=== PATIENT | male | born 1995 | race Two or more races ===

== ENCOUNTER 2025-07-05 07:34 | Emergency (ER) | payer MEDICAID, SELFPAY ==
--- NOTE | ~2025-07-05 | XR_ITS ---
EXAMINATION: XR THORACIC SPINE 2 VIEWS HISTORY: pain, injury COMPARISON: There are no prior studies available for comparison. FINDINGS: AP and lateral views of the thoracic spine are submitted. Osseous mineralization is normal. The vertebral bodies maintain normal height and alignment without evidence of fracture or subluxation. There are minimal degenerative changes with anterior spurring. The visualized paraspinal soft tissues are unremarkable. XR/XR thoracic spine 2V IMPRESSION: Minimal degenerative changes. Otherwise unremarkable examination of the thoracic spine. Electronically signed by: Willam Bravo MD 07/05/2025 11:29 AM EDT
[2025-07-05 07:44] VITALS: BP 120/56; PULSE 74; RESP 16; TEMP 37; O2SAT 99; BMI 33.5
--- NOTE | 2025-07-05 09:35 | ED_ITS ---
HPI - General Adult General Chief complaint: Back Pain/Injury Stated complaint: Middle back pain, Abd Stiff, L arm numb Time Seen by Provider: 07/05/25 09:32 Source: patient Mode of arrival: ambulatory Limitations: no limitations History of Present Illness ED Provider: Carolina Delatorre PA-C HPI narrative: Patient is a 29 year old male with no significant medical history presenting with back pain since 6:30 this morning. 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 He says he almost fell over from the pain and then used the wall to go to his bed where he then lied down unable to move from severe pain. His pain now is at a 7/10 and not as severe as when it initially happened. He also felt numbness and tingling in his legs which has now resolved. He tried topical lidocaine and ibuprofen with little to no relief. He denies fever, chills, chest pain, palpitations, shortness of breath, n/v/d, abdominal pain, or dysuria. Onset (ago): hour(s) (5) Location: back Radiation: non-radiation Severity: moderate Severity scale (1-10): 7 Quality: sharp Pain Consistency: intermittent Relieving factors: rest Exacerbating factors: movement Associated symptoms: denies other symptoms Related Data Previous Rx's ?Medication ?Instructions ?Recorded cyclobenzaprine 5 mg tablet 5 mg PO TID PRN back pain 7 days 07/05/25 #21 tabs prednisone 20 mg tablet 20 mg PO DAILY 7 days #7 tab s 07/05/25 Allergies Allergy/AdvReac Type Severity Reaction Status Date / Time shellfish derived (shellfish) Allergy Hives Verified 07/05/25 07:49 Review of Systems Constitutional: Constitutional: Reports no additional constitutional complaints, Denies chills, Denies fever(s) and Denies night sweats Eyes: Eyes: Reports no additional eye complaints, Denies blurry vision, Denies change in vision, Denies diplopia, Denies eye discharge, Denies loss of vision and Denies eye pain ENT: Denies dizziness Cardiovascular: Cardiovascular: Reports no additional cardiovascular complaints, Denies chest pain, Denies lightheadedness, Denies Loss of Consciousness and Denies dyspnea Respiratory: Respiratory: Reports no additional respiratory complaints and Denies dyspnea Gastrointestinal: Gastrointestinal: Reports no additional gastrointestinal complaints, Denies abdominal pain, Denies melena, Denies hematochezia, Denies change in bowel habits and Denies change in stool character Genitourinary: Genitourinary: Reports no additional male genitourinary complaints, Denies hematuria, Denies oliguria, Denies difficulty urinating, Denies dysuria, Denies urinary frequency, Denies urinary hesitancy, Denies urinary incontinence and Denies urinary urgency Musculoskeletal: Musculoskeletal: Reports as per HPI and Reports back pain Neurologic: Denies dizziness and Denies loss of vision Psychiatric: Psychiatric: Reports no additional psychiatric complaints Endocrine: Endocrine: Reports no additional endocrine complaints Hematologic/Lymphatic: Hematologic/Lymphatic: Reports no additional hematologic/lymphatic complaints Allergic/Immunologic: Allergic/Immunologic: Reports no additional allergic/immunologic complaints PMFSH Past Medical History Attestation statement: The following information was validated with the patient. Source: old records reviewed and nursing notes reviewed Social History Social History Smoked in Last 30 Days: No Use of substances other than those prescribed or required for medical reasons: No Advance Directives: No Advance Directives Information Provided: No Physical Exam ED Vital Signs: Vital Signs - 24 hr 07/05/25 07:44 Temperature 98.6 F Pulse Rate 74 Respiratory Rate 16 Blood Pressure 120/56 L Pulse Oximetry 99 Oxygen Delivery Method Room Air BMI result Body Mass Index 33.5 Const General: cooperative, no acute distress, alert and awake Nutritional Appearance: well nourished Orientation/consciousness: patient oriented x3 HENMT Head: Yes normal to inspection and Yes atraumatic Ears: hearing grossly normal bilaterally and external ears normal General nose exam: Normal external nose present, no nasal discharge noted and no epistaxis Face and sinus: Yes normal facial exam, No abrasion and No laceration Mouth: Normal oral and palatal mucosa present, no drooling and no muffled voice Eyes General: appearance normal, both eyes and all related structures Periorbital: periorbital findings normal Eyelids: Yes eyelids normal Conjunctivae: conjunctivae normal Pupils: Equal, round and reactive pupils present EOM: EOMs intact bilaterally Neck Neck: Yes normal visual inspection and Yes full ROM Resp Effort & Inspection: normal respiratory effort and able to speak in complete sentences Auscultation: clear to auscultation bilaterally Cardio Rate: regular rate Rhythm: regular rhythm Neuro General: patient oriented x3, moves all extremities and CN's II-XI intact bilaterally Cranial nerves: Yes Equal, round and reactive pupils present Cognition (Neuro): normal cognition Extrem Other: Tenderness to palpation directly over the mid-thoracic spinous processes without step off, swelling or erythema. General: Yes normal to inspection, Yes full ROM and Yes capillary refill normal Psych Appearance: grossly normal Mental Status: mental status grossly normal Affect: normal affect Attitude: cooperative Thought process: Normal thought process present Thought content: Normal thought content present Insight: Good insight present (Psych) Medications Administered Discontinued Medications Generic Name Dose Route Start Last Admin Trade Name Stef PRN Reason Stop Dose Admin Cyclobenzaprine HCl 5 mg 07/05/25 10:28 07/05/25 11:29 Cyclobenzaprine Hcl 5 Mg Tablet PO 07/05/25 10:29 5 mg ONCE ONE Administration Ketorolac Tromethamine 15 mg 07/05/25 10:28 07/05/25 11:28 Ketorolac Tromethamine 15 Mg/Ml Vial IM 07/05/25 10:29 15 mg ONCE ONE Administration Methylprednisolone Sodium Succinate 60 mg 07/05/25 10:28 07/05/25 11:29 Methylprednisolone Sod Succ 125 Mg/2 Ml Vial IM 07/05/25 10:29 60 mg ONCE ONE Administration Medical Decision Making Medical Decision Making [facility] Narrative: Patient is a 29 year old assigned male at with no reported medical history presenting to the emergency department today with thoracic back pain. Patient's physical exam was unremarkable. Patient's thoracic x-ray showed no acute process. I explained my physical exam findings as well as all test results to the patient. I answered all questions asked by the patient. Patient's clinical presentation is most consistent with a thoracic back strain. Patient was able to move / ambulate without issue. I stressed the importance of the patient taking his medication as directed (either prescribed or as the over the counter packaging recommends). I stressed the importance of the patient following up with his primary care provider. I stressed the importance of the patient returning to the emergency department immediately if his symptoms were to worsen or if he were to develop any dizziness, shortness of breath, difficulty breathing, chest pain, blurry vision, loss of vision, nausea, vomiting, abdominal pain, fever, chills, back pain, or any other complaints. Patient verbalized agreement and understanding with this treatment plan and discharge. Differential Diagnosis Differential Diagnoses: The differential diagnosis associated with the presentation includes Back pain Thoracic back pain Back sprain Back strain Admission/Observation Consideration of admission/observation: Escalation of care including admission/observation considered Patient would have been admitted to the hospital had his work up had any findings where hospital admission was appropriate and his clinical presentation warranted hospital admission. Independent Interpretation I performed an independent interpretation of an: Plain X-Ray Interpretation: My interpretation is in agreement with the radiologist's impression of this imaging study. EXAMINATION: XR THORACIC SPINE 2 VIEWS HISTORY: pain, injury COMPARISON: There are no prior studies available for comparison. FINDINGS: AP and lateral views of the thoracic spine are submitted. Osseous mineralization is normal. The vertebral bodies maintain normal height and alignment without evidence of fracture or subluxation. There are minimal degenerative changes with anterior spurring. The visualized paraspinal soft tissues are unremarkable. XR/XR thoracic spine 2V IMPRESSION: Minimal degenerative changes. Otherwise unremarkable examination of the thoracic spine. Electronically signed by: Willam Bravo MD 07/05/2025 11:29 AM EDT Dictated By: Willam Bravo MD Signed By: Electronically signed by Willam Bravo MD 07/05/25 1129 Radiology Impression Discussion of test interpretation with radiology: I have reviewed the radiologist's reading. Prescription Management I considered prescription management with: Pain Medication (patient prescribed pain medication) Discharge Plan Discharge Clinical Impression: Back pain, thoracic Qualifiers: Chronicity: acute Back pain laterality: midline Qualified Code(s): M54.6 - Pain in thoracic spine Patient Disposition: Home, Self-Care Instructions: Back Pain (ED) Additional Instructions: Your thoracic x-ray showed no acute / new fracture / break. IF you are prescribed home medications and/or you are taking over the counter medications at home - it is very important you continue to do so as prescribed / directed unless told otherwise. Follow up with a primary care provider. Return to the emergency department immediately if your symptoms worsen or if you develop any numbness, tingling, dizziness, shortness of breath, difficulty breathing, chest pain, blurry vision, loss of vision, nausea, vomiting, abdominal pain, fever, chills, back pain, or any other complaints. If you do not have a primary care provider - call any of the below numbers to establish and follow up with a primary care provider. [facility] ([place]) [phone] [place] [address], [id number] [facility] [place]) [phone] [place] [address], [address] [facility], [address] [facility] ([facility]) [phone] [place] [address], [address] [facility], [address] [facility] ([place]) [phone] [place] [address] [address] [facility], [address] [facility] [phone] [address] [facility], [address] Please see the information below about our Patient Portal. If you are not yet enrolled in the [facility] Patient Portal, you will receive an enrollment email invitation following your visit to any [facility] setting. You may also self-enroll in the Patient Portal by visiting our website: [email or web address] The following information is required to access the Patient Portal: - Your [facility] Medical Record Number - Your personal home email address (must match what is in your electronic medical record, Registration staff can assist with this) - Name - Date of Capabilities of the Patient Portal: - Message some providers - View upcoming appointments - Access your health summary, medical history, and visit history - View current conditions and allergies - View procedure and lab results - View your medications, including guidelines, side effects, and precautions - Complete pre-appointment questionnaires requested by your provider - Ready summary reports of your office visits and procedures To access the Patient Portal Mobile Paty, follow these directions: - Search [employer] in the Paty Store or Kinetic Store - Download the Paty - Search for [facility] - Enter your login/password Prescriptions: New prednisone 20 mg tablet 20 mg PO DAILY 7 Days Qty: 7 0RF cyclobenzaprine 5 mg tablet 5 mg PO TID PRN (Reason: back pain) 7 Days Qty: 21 0RF Stand Alone Forms: Work/School Release Discharge Date/Time: 07/05/25 11:59 Print Language: Romansh
== END 2025-07-05 11:59 | disposition home or self-care (01) ==
PROVIDERS: Emergency Provider Emergency Medicine
DX: M54.6 Pain in thoracic spine (principal); S29.012A Strain of muscle and tendon of back wall of thorax, initial encounter; X50.9XXA Other and unspecified overexertion or strenuous movements or postures, initial encounter; Y93.H3 Activity, building and construction; Y92.098 Other place in other non-institutional residence as the place of occurrence of the external cause; Y99.8 Other external cause status
CPT/HCPCS: 72070; 96372; 99284; J1885; J2919

== ENCOUNTER → 2025-07-05 10:28 | Outpatient (BNV) | payer MEDICAID, SELFPAY | PROVIDERS: Emergency Provider Emergency Medicine; Visit Provider Radiology Diagnostic Radiology | DX: M51.34 Other intervertebral disc degeneration, thoracic region (principal) | CPT/HCPCS: 72070 ==

== ENCOUNTER 2025-07-29 17:10 | Emergency (ER) | payer MEDICAID, SELFPAY ==
[2025-07-29 17:45] VITALS: BP 129/70; PULSE 60; RESP 18; TEMP 37; O2SAT 99; BMI 33.1
--- NOTE | 2025-07-29 17:47 | ED.GENADULT ---
HPI - General Adult General Chief complaint: Dental/Oral Stated complaint: tooth ache Time Seen by Provider: 07/29/25 18:08 Source: patient, RN notes reviewed and old records reviewed Mode of arrival: ambulatory Limitations: no limitations History of Present Illness ED Provider: [facility] narrative: Patient is a 29-year-old male presenting to the ED with complaint of dental pain. States he fractured a tooth around one month ago to right lower jaw. Pain has worsened over past few days. He has been attempting to obtain insurance and get a dental appointment but states he cannot pay out of pocket until 2 weeks from now. Denies fevers. Denies discharge or drainage. Denies lymphadenopathy. Denies difficulty swallowing. MD complaint: Dental pain Onset (ago): week(s) Related Data Previous Rx's ?Medication ?Instructions ?Recorded cyclobenzaprine 5 mg tablet 5 mg PO TID PRN back pain 7 days 07/05/25 #21 tabs prednisone 20 mg tablet 20 mg PO DAILY 7 days #7 tabs 07/05/25 amoxicillin 875 mg-potassium 1 tab PO BID #14 tabs 07/29/25 clavulanate 125 mg tablet chlorhexidine gluconate 0.12 % 15 ml buccal BID #1,893 mL 07/29/25 mouthwash Allergies Allergy/AdvReac Type Severity Reaction Status Date / Time shellfish derived (shellfish) Allergy Hives Verified 07/29/25 17:45 Review of Systems Review of Systems: as per hpi Yes all other systems are reviewed and are negative Constitutional: Constitutional: Reports as per HPI [facility] Social History Social History Advance Directives: No Advance Directives Information Provided: Yes Physical Exam ED Vital Signs: Vital Signs - 24 hr 07/29/25 17:45 07/29/25 18:08 Temperature 98.6 F 98.6 F Pulse Rate 60 60 Respiratory Rate 18 18 Blood Pressure 129/70 129/70 Pulse Oximetry 99 99 Oxygen Delivery Method Room Air Room Air BMI result Body Mass Index 33.1 Vital signs have been reviewed and appear to be correct. Blood pressure normal. Heart rate normal. Respiratory rate normal. Temperature normal. Oxygen saturation normal. Const General: cooperative, healthy appearing and no acute distress Orientation/consciousness: oriented to person, oriented to place, oriented to time and patient oriented x3 Limitations: no limitations [facility] Head: Yes normocephalic and Yes atraumatic Ears: external ears normal General nose exam: Normal external nose present Face and sinus: Yes face symmetric Mouth: oropharynx normal and moist mucous membranes Teeth image:  1. tooth fractured posteriorly, gingival erythema and edema without fluctuance, no drainage Throat: Yes uvula midline Eyes Pupils: Equal, round and reactive pupils present Neck Neck: Yes normal visual inspection and Yes supple Resp Effort & Inspection: normal respiratory effort and able to speak in complete sentences Auscultation: clear to auscultation bilaterally Cardio Rate: regular rate Rhythm: regular rhythm Heart sounds: S1 normal heart sound present and S2 normal heart sound present GI Palpation (GI): Soft to palpation and nontender Auscultation: normoactive bowel sounds General: Yes no CVA tenderness Back/Spine/Pelvis Back: no CVA tenderness Skin General skin exam: elasticity normal and turgor normal Neuro General: oriented to person, oriented to place, oriented to time, patient oriented x3, moves all extremities, no focal motor deficits and CN's II-XI intact bilaterally Cranial nerves: Yes Equal, round and reactive pupils present Cognition (Neuro): normal cognition Extrem General: Yes full ROM, Yes no pedal edema and Yes no calf tenderness Psych Mental Status: mental status grossly normal Affect: normal affect Thought process: Normal thought process present Medical Decision Making Medical Decision Making [facility] Narrative: Patient is a 29-year-old male presenting to the ED with complaint of dental pain. On exam patient is awake, A+Ox3, VS WNL, afebrile, normal neurological exam without focal deficits, physical exam findings as above. Given reported symptoms and physical exam findings, initial differential includes but is not limited to dental pain, dental infection, dental abscess. Do not suspect Clemente's angina. Will treat with course of Augmentin. Patient provided with list of local dental clinics. Advised Tylenol and ibuprofen. Also send prescription for chlorhexidine mouthwash. Return precautions discussed. Patient verbalized understanding of and agreement with plan. Differential Diagnosis Differential Diagnoses: The differential diagnosis associated with the presentation includes As per MDM Admission/Observation Consideration of admission/observation: Escalation of care including admission/observation considered Patient would have been admitted to the hospital had their clinical presentation warranted hospital admission. External Record Review External record reviewed: Inpatient record, Office record and Outpatient record Prescription Management I considered prescription management with: Antibiotic Discharge Plan Discharge Clinical Impression: Dental infection Patient Disposition: Home, Self-Care Instructions: Dental Abscess (ED) Additional Instructions: You were evaluated in the emergency department today for complaint of dental pain. You are being treated for a dental infection with antibiotics. Please complete the full course of antibiotics as prescribed even if your symptoms improve. IT IS IMPORTANT THAT YOU FOLLOW UP WITH A DENTIST SOON POSSIBLE. We recommend that you take 600 mg of ibuprofen or 650 mg Tylenol every 6 hours as needed for pain. If necessary, you can alternate these medications every 3 hours. For example, at 9:00 a.m. take Tylenol, then at noon take ibuprofen, then at 3:00 p.m. take Tylenol, etc.. Return to the emergency department if you develop worsening pain, swelling, difficulty swallowing, difficulty breathing, fever, or any other concerning symptoms. Call or visit any of the clinics below to establish care with a dentist: [facility] [address] [place] [address] [facility] [address] [facility], [address] [address] [facility] [address] [place] [address] [id number] [facility] [address] [place] [address] [place] [address] [place] [address] Prescriptions: New amoxicillin-pot clavulanate 875-125 mg tablet 1 tab PO BID Qty: 14 0RF chlorhexidine gluconate 0.12 % mouthwash 15 ml buccal BID Qty: 1893 0RF No Action prednisone 20 mg tablet 20 mg PO DAILY 7 Days Qty: 7 0RF cyclobenzaprine 5 mg tablet 5 mg PO TID PRN (Reason: back pain) 7 Days Qty: 21 0RF Interventions: ED Discharge Assessment Last Done: 07/29/25 18:08 Discharge Date/Time: 07/29/25 18:09 Print Language: Turkmen
[2025-07-29 18:08] VITALS: BP 129/70; PULSE 60; RESP 18; TEMP 37; O2SAT 99
== END 2025-07-29 18:09 | disposition home or self-care (01) ==
PROVIDERS: Emergency Provider Emergency Medicine
DX: K04.7 Periapical abscess without sinus (principal); S02.5XXA Fracture of tooth (traumatic), initial encounter for closed fracture; X58.XXXA Exposure to other specified factors, initial encounter; Y93.89 Activity, other specified; Y92.89 Other specified places as the place of occurrence of the external cause; Y99.8 Other external cause status
CPT/HCPCS: 99282; 99283; 99285

== ENCOUNTER 2025-09-10 22:56 | Emergency (ER) | payer MEDICAID, SELFPAY ==
[2025-09-10 23:15] VITALS: BP 118/57; PULSE 66; RESP 18; TEMP 36.3; O2SAT 99; BMI 33.9
--- NOTE | 2025-09-11 00:44 | ED.DENTAL ---
HPI - Dental/Oral General Chief complaint: Dental/Oral Stated complaint: dental pain Time Seen by Provider: 09/11/25 00:41 Source: patient Mode of arrival: ambulatory Limitations: no limitations History of Present Illness ED Provider: Giorgi LONDONO HPI Narrative: The patient is a 30-year-old male presenting to the ED for evaluation of dental pain. The patient reports he suffered a fractured tooth of his right mandible 2 months ago, patient was seen in this ED at the beginning of July and treated with antibiotics. Patient was advised at that time to seek follow up with a dentist, advises he has been attempting to establish dental insurance since that time. The patient reports he we will finally now have dental insurance beginning September 25 and intends to follow up with a dentist. Patient reports symptoms initially resolved after treatment in July with antibiotics, however over the past week symptoms have recurred with pain at the site of the fracture, as well as radiating into the TMJ. The patient denies associated fever/chills, nausea, vomiting, drainage, or other acute somatic complaint. Related Data Previous Rx's ?Medication ?Instructions ?Recorded cyclobenzaprine 5 mg tablet 5 mg PO TID PRN back pain 7 days 07/05/25 #21 tabs prednisone 20 mg tablet 20 mg PO DAILY 7 days #7 tabs 07/05/25 amoxicillin 875 mg-potassium 1 tab PO BID #14 tabs 07/29/25 clavulanate 125 mg tablet chlorhexidine gluconate 0.12 % 15 ml buccal BID #1,893 mL 07/29/25 mouthwash amoxicillin 875 mg-potassium 1 tab PO BID #20 tabs 09/11/25 clavulanate 125 mg tablet Allergies Allergy/AdvReac Type Severity Reaction Status Date / Time shellfish derived (shellfish) Allergy Hives Verified 09/10/25 23:17 Review of Systems Review of Systems: Yes all other systems are reviewed and are negative Physical Exam Vital Signs: Vital Signs: Last Vital Signs Temp 97.4 F 09/10/25 23:15 Pulse 66 09/10/25 23:15 Resp 18 09/10/25 23:15 BP 118/57 L 09/10/25 23:15 Pulse Ox 99 09/10/25 23:15 O2 Del Method Room Air 09/10/25 23:15 BMI result Body Mass Index 33.9 CONSTITUTIONAL: The patient appears non-toxic, well nourished and in no acute distress. Vital signs as documented. HEAD: Atraumatic, normocephalic. EYES: EOMs grossly intact, pupils equal, conjunctiva clear, no exudate. ENT: Nares patent, no discharge. Airway patent, no audible stridor, visible mucosa is pink and moist without noted lesions. There is mildly poor dentition noted, with a fracture noted to the posterior aspect of the right lower bicuspid. There is no drainable abscess identified. NECK: trachea is midline, no obvious masses or gross abnormalities. CHEST: Symmetric movement, normal appearance. LUNGS: Non-labored work of breathing. CARDIAC: No evidence of hypoperfusion. ABDOMEN: Nondistended, no obvious injury. : Deferred. EXTREMITIES: Moves all extremities spontaneously without reported pain. No obvious injury or deformity noted. NEURO: Alert and oriented x3, CN II-XII appear grossly intact. Cerebellar Functioning grossly intact. Speech clear and appropriate. SKIN: Warm, dry, color appropriate. No rashes or lesions noted. Medical Decision Making Medical Decision Making MDM Narrative: 1:02 AM 09/11/2025 (Philipp LONDONO): The patient is a 30-year-old male presenting to the ED for evaluation of dental pain. The patient reports he suffered a fractured tooth of his right mandible 2 months ago, patient was seen in this ED at the beginning of July and treated with antibiotics. Patient was advised at that time to seek follow up with a dentist, advises he has been attempting to establish dental insurance since that time. The patient reports he we will finally now have dental insurance beginning September 25 and intends to follow up with a dentist. Patient reports symptoms initially resolved after treatment in July with antibiotics, however over the past week symptoms have recurred with pain at the site of the fracture, as well as radiating into the TMJ. The patient denies associated fever/chills, nausea, vomiting, drainage, or other acute somatic complaint. In the ED patient has evidence of a fracture of the posterior aspect of the right lower bicuspid. There is no drainable abscess identified. The patient's symptoms will be treated with another course of Augmentin, we will also administer Tylenol in the ED but forego NSAIDs as the patient took Motrin at 22:00. Admission/Observation Consideration of admission/observation: Escalation of care including admission/observation considered Prescription Management I considered prescription management with: Pain Medication and Antibiotic Discharge Plan Discharge Clinical Impression: Toothache Patient Disposition: Home, Self-Care Instructions: Toothache (ED) Additional Instructions: Thank you for choosing [facility] Emergency Department for your care today. You were seen today for evaluation of dental pain. You are being treated for a dental infection with antibiotics. Please take the antibiotics as prescribed until finished. It is extremely important that you follow up with a dentist for definitive dental care. You should take alternating (staggered) doses of ibuprofen 600mg and Tylenol 1000mg every 4 hours as needed for any additional pain. Please also follow up with your primary care physician for re-evaluation, additional management of your symptoms, and continued preventative care. If you do not have a primary care physician, please call the [facility] at [phone] to establish a new primary care physician. While waiting to establish your new primary care physician, you can call our [facility] at [phone] for non-emergency needs. Please return to the emergency department if you develop worsening pain, swelling, difficulty swallowing, difficulty breathing, fever over 100.4 which does not improve with Tylenol or ibuprofen, or any other concerning symptoms. Call or visit any of the clinics below to establish care with a dentist: [facility] [address] [place] [address] [facility] [address] [facility], [address] [address] [place] [id number] [facility] [address] [place] [id number] [facility] [address] [place] [address] [place] [address] [place] [address] Prescriptions: New amoxicillin-pot clavulanate 875-125 mg tablet 1 tab PO BID Qty: 20 0RF No Action amoxicillin-pot clavulanate 875-125 mg tablet 1 tab PO BID Qty: 14 0RF chlorhexidine gluconate 0.12 % mouthwash 15 ml buccal BID Qty: 1893 0RF prednisone 20 mg tablet 20 mg PO DAILY 7 Days Qty: 7 0RF cyclobenzaprine 5 mg tablet 5 mg PO TID PRN (Reason: back pain) 7 Days Qty: 21 0RF Print Language: Slovak
[2025-09-11 01:24] VITALS: BP 118/57; PULSE 66; RESP 18; TEMP 36.3; O2SAT 99
== END 2025-09-11 01:25 | disposition home or self-care (01) ==
PROVIDERS: Emergency Provider Emergency Medicine
DX: K08.89 Other specified disorders of teeth and supporting structures (principal)
CPT/HCPCS: 99283

== ENCOUNTER 2025-10-14 22:31 | Emergency (ER) | payer MEDICAID, SELFPAY ==
[2025-10-14 22:34] VITALS: BP 134/69; PULSE 68; RESP 18; TEMP 36.3; O2SAT 98; BMI 31.2
--- NOTE | 2025-10-15 00:03 | ED_ITS ---
HPI - Dental/Oral General Chief complaint: Dental/Oral Stated complaint: Dental Infection Time Seen by Provider: 10/14/25 23:54 Source: patient Mode of arrival: ambulatory Limitations: no limitations History of Present Illness ED Provider: Dr. Mary Bobby HPI Narrative: Patient comes to the emergency room complaining of dental pain, right mandibular side. According to the patient, he has had this issues multiple times. Patient has trouble getting to a dentist due to insurance issues. However, patient states that this keeps recurring and now is willing to pay out of pocket, has an appointment in the next 3 days with a new dentist. Patient denies fever or chills. Related Data Previous Rx's ?Medication ?Instructions ?Recorded cyclobenzaprine 5 mg tablet 5 mg PO TID PRN back pain 7 days 07/05/25 #21 tabs prednisone 20 mg tablet 20 mg PO DAILY 7 days #7 tab s 07/05/25 amoxicillin 875 mg-potassium 1 tab PO BID #14 tabs 03/19 clavulanate 125 mg tablet chlorhexidine gluconate 0.12 % 15 ml buccal BID #1,893 mL 07/29/25 mouthwash amoxicillin 875 mg-potassium 1 tab PO BID #20 tabs clavulanate 125 mg tablet amoxicillin 500 mg-potassium 1 tab PO TID 10 days #30 tabs 10/15/25 clavulanate 125 mg tablet (Augmentin) ketorolac 10 mg tablet 10 mg PO TID PRN pain #15 ta bs 10/15/25 Allergies Allergy/AdvReac Type Severity Reaction Status Date / Time shellfish derived (shellfish) Allergy Hives Verified 10/14/25 22:36 Review of Systems Review of Systems: Constitutional : No Weight loss, No Fever, No Chills, No Night Sweats, No Fatigue, No Malaise ENT/Mouth : complaining of right dental pain in the mandible, No Ear Pain, No Nasal Congestion, No Sinus Pain, No Hoarseness, No sore throat, No Rhinorrhea, No Swallowing Difficulty Eyes: No Eye Pain, No Swelling, No Redness, No Foreign Body, No Discharge, No Vision Changes Cardiovascular : No Chest Pain, No SOB, No Dyspnea on Exertion, No Orthopnea, No Edema, No Palpitations Respiratory : No Cough, No Sputum, No Wheezing, No Smoke Exposure, No Dyspnea Gastrointestinal : No Nausea, No Vomiting, No Diarrhea, No Constipation, No abdominal Pain, No Hematochezia, No Melena Genitourinary : no irregular bleeding, No Dysuria, No Urinary Frequency, No Hematuria, No Urinary Incontinence, No Urgency, No Flank Pain, No Urinary Flow Changes, No Hesitancy Musculoskeletal : No joint pain, No Myalgias, No Joint Swelling Skin : No Skin Lesions, No rash Neuro : No Weakness, No Numbness, No Paresthesias, No Loss of Consciousness, No Dizziness, No Headache Psych : No Anxiety/Panic, No Depression, No SI/HI/AH/VH, No Social Issues, Heme/Lymph: No Bruising, No Bleeding,No Lymphadenopathy Endocrine : No Polyuria, No Polydipsia, No Temperature Intolerance [facility] Social History Social History Advance Directives: No Advance Directives Information Provided: No Do you have a plan to hurt others: No Plan Physical Exam Exam: Exam: Appearance: Alert. Oriented X3. No acute distress. Eyes: Pupils equal, round and reactive to light. ENT: Pharynx normal. no obvious abscess that could be drained. Poor dentition Neck: Normal inspection. Neck supple. No lymph nodes noted. No crepitus CVS: Normal heart rate and rhythm. Pulses normal. Normal S1 and S2 Respiratory: No respiratory distress. Breath sounds normal. No Wheezing. No rales Abdomen: Soft and nontender. No rigidity. No distention. Skin: Skin warm and dry. Normal skin color. Normal skin turgor. Extremities: No lower extremity edema. No Lacerations. No Rash Neuro: Oriented X 3. No motor deficit. No sensory deficit. Moving all extremities. No slurred speech. CN 2 through 12 grossly intact Psych: calm, cooperative, normal affect Vital Signs: Vital Signs: Last Vital Signs Temp 97.3 F 10/14/25 22:34 Pulse 68 10/14/25 22:34 Resp 18 10/14/25 22:34 BP 134/69 10/14/25 22:34 Pulse Ox 98 10/14/25 22:34 O2 Del Method Room Air 10/14/25 22:34 BMI result Body Mass Index 31.2 Medical Decision Making Medical Decision Making MDM Narrative: Patient was given IM Toradol and p.o. Augmentin. patient has an appointment pending with his new dentist. Discharge Plan Discharge Clinical Impression: Toothache Patient Disposition: Home, Self-Care Instructions: Toothache (ED) Additional Instructions: Please follow-up with your primary care physician tomorrow. If you have any worsening or new symptoms, please return to the emergency room or call 911 Prescriptions: New amoxicillin-pot clavulanate [Augmentin] 500-125 mg tablet 1 tab PO TID 10 Days Qty: 30 0RF ketorolac 10 mg tablet 10 mg PO TID PRN (Reason: pain) Qty: 15 0RF No Action amoxicillin-pot clavulanate 875-125 mg tablet 1 tab PO BID Qty: 14 0RF chlorhexidine gluconate 0.12 % mouthwash 15 ml buccal BID Qty: 1893 0RF prednisone 20 mg tablet 20 mg PO DAILY 7 Days Qty: 7 0RF cyclobenzaprine 5 mg tablet 5 mg PO TID PRN (Reason: back pain) 7 Days Qty: 21 0RF amoxicillin-pot clavulanate 875-125 mg tablet 1 tab PO BID Qty: 20 0RF Print Language: Kazakh
[2025-10-15 00:35] VITALS: BP 134/69; PULSE 68; RESP 18; TEMP 36.3; O2SAT 98
== END 2025-10-15 00:38 | disposition home or self-care (01) ==
PROVIDERS: Emergency Provider Emergency Medicine
DX: K04.7 Periapical abscess without sinus (principal); K08.89 Other specified disorders of teeth and supporting structures
CPT/HCPCS: 96372; 99284; J1885